=== PATIENT | female | born 1955 | race Caucasian/White ===

== ENCOUNTER 2025-06-27 12:38 | Outpatient (CLI) | payer MEDICARE, OTHER | END 2025-06-27 12:39 | disposition home or self-care (01) | LOC: CSHMAMMO 12:38 | PROVIDERS: ATTEND Surgery | DX: Z08 Encounter for follow-up examination after completed treatment for malignant neoplasm (principal); Z85.3 Personal history of malignant neoplasm of breast | CPT/HCPCS: 77066; G0279 ==